=== PATIENT | female | born 1960 | race Caucasian/White ===

== ENCOUNTER 2020-09-25 16:37 | Emergency (ER) | payer OTHER ==
[~2020-09-25] VITALS: Ht 165.1 cm; Wt 76.2 kg
[2020-09-25 17:09] VITALS: BP 117/81; Ht 165.1 cm; Wt 76.2 kg
== END 2020-09-25 19:38 | disposition home or self-care (01) ==
LOC: ED 16:37
DX: S61.412A Laceration without foreign body of left hand, initial encounter (principal); W26.9XXA Contact with unspecified sharp object(s), initial encounter; Y93.89 Activity, other specified; Y92.89 Other specified places as the place of occurrence of the external cause; Y99.8 Other external cause status
CPT/HCPCS: J2001